=== PATIENT | male | born 1975 | race Caucasian/White ===

== ENCOUNTER 2017-07-28 08:21 | Emergency (ER) | payer MEDICAID ==
[2017-07-28] MEDS: HYDROCODONE/APAP (10/325) TAB PO (11:24)
== END 2017-07-28 12:12 | disposition home or self-care (01) ==
LOC: FTE 08:21
DX: N45.1 Epididymitis (principal); Z87.891 Personal history of nicotine dependence
CPT/HCPCS: 76870; 99284-25

== ENCOUNTER 2018-12-27 20:41 | Inpatient (IN) | payer MEDICAID ==
[2018-12-27] MEDS: SODIUM CHLORIDE 0.9% 1L BAG IV* (21:14)
[2018-12-27] MEDS: CEFEPIME 2GM/50 ML (PMX) 50 ML IVPB (21:15)
[2018-12-27] MEDS: ACETAMINOPHEN 325 MG TAB PO (21:15)
[2018-12-27 21:16] LABS: ABNORMAL IP MESSAGE 1; HEMATOCRIT 42.4 % (42.0-52.0); HEMOGLOBIN 13.8 g/dl (14.0-18.0); MEAN CORPUSCULAR HEMOGLOBIN 29.7 pg (29.0-33.0); MEAN CORPUSCULAR HGB CONC 32.5 g/dl (32.0-37.0); MEAN CORPUSCULAR VOLUME 91.2 fl (82.0-101.0); MEAN PLATELET VOLUME 9.3 fl (7.4-10.4); PLATELET COUNT 93 10^3/UL (140-415); POSITIVE DIFF @See below; RED BLOOD COUNT 4.65 10^6/ul (4.70-6.10); RED CELL DISTRIBUTION WIDTH 12.5 % (11.5-14.5)
[2018-12-27 21:16] LABS: WHITE BLOOD COUNT 1.7 10^3/ul (4.8-10.8)
[2018-12-27 21:23] LABS: ADD MAN DIFF? YES; PATH REVIEW? YES
[2018-12-27 21:36] LABS: INR 1.79; PROTIME 20.9 Sec (11.9-14.9); PT RATIO 1.6
[2018-12-27 21:37] LABS: PARTIAL THROMBOPLASTIN TIME 48.3 Sec (23.0-35.0)
[2018-12-27 21:39] LABS: ALANINE AMINOTRANSFERASE 23 IU/L (13-69); ALBUMIN 3.8 g/dl (3.3-4.9); ALBUMIN/GLOBULIN RATIO 1.46; ALKALINE PHOSPHATASE 72 IU/L (42-121); ANION GAP 11 (5-13); ASPARTATE AMINO TRANSFERASE 38 IU/L (15-46); BILIRUBIN,INDIRECT 0.9 mg/dl (0-1.1); BILIRUBIN,TOTAL 0.9 mg/dl (0.2-1.3); BLOOD UREA NITROGEN 33 mg/dl (7-20); CALCIUM 8.8 mg/dl (8.4-10.2); CARBON DIOXIDE 25 mmol/L (21-31); CHLORIDE 104 mmol/L (97-110); CREATININE 1.82 mg/dl (0.61-1.24); Estimated GFR 40 mL/min (>60); GLUCOSE 104 mg/dl (70-220); POTASSIUM 3.3 mmol/L (3.5-5.1); SODIUM 140 mmol/L (135-144); TOTAL PROTEIN 6.4 g/dl (6.1-8.1)
[2018-12-27 21:50] LABS: TROPONIN-I < 0.012 ng/ml (0.000-0.120)
[2018-12-27] MEDS: VANCOMYCIN 1 GM (PMX) 250 ML IVPB (21:51)
[2018-12-27 21:58] LABS: BAND NEUTROPHILS #M 0.1 10^3/ul (0.0-0.6); BAND NEUTROPHILS % (M) 8 % (0-4); BASOPHILS % (M) 1 % (0-2); GIANT THROMBO% (M) 4 % (0-0); LYMPHOCYTES #M 0.2 10^3/ul (0.8-2.9); LYMPHOCYTES % (M) 17 % (15-51); MONOCYTE #M 0.1 10^3/ul (0.3-0.9); MONOCYTES % (M) 8 % (0-11); PLATELET ESTIMATE DECREASED; SEG NEUT #M 1.1 10^3/ul (1.6-7.5); SEGMENTED NEUTROPHILS (M) % 65 % (39-77); SMUDGE%M 10 % (0-0)
[2018-12-27 22:49] LABS: ADD UMIC YES; UR ASCORBIC ACID NEGATIVE (NEGATIVE); UR BACTERIA FEW /HPF (NONE SEEN); UR BILIRUBIN (Dip) NEGATIVE (NEGATIVE); UR BLOOD (Dip) 1+ mg/dL (NEGATIVE); UR CLARITY CLOUDY (CLEAR); UR COLOR YELLOW (YELLOW); UR GLUCOSE (Dip) NEGATIVE (NEGATIVE); UR KETONES (Dip) NEGATIVE (NEGATIVE); UR LEUKOCYTE ESTERASE (Dip) 2+ Leu/ul (NEGATIVE); UR MUCUS FEW /HPF (NONE SEEN); UR NITRITE (Dip) NEGATIVE (NEGATIVE); UR RBC 5 /HPF (0-5); UR SPECIFIC GRAVITY (Dip) 1.013 (1.003-1.030); UR TOTAL PROTEIN (Dip) 1+ mg/dl (NEGATIVE); UR UROBILINOGEN (Dip) NEGATIVE (NEGATIVE); UR WBC 66 /HPF (0-5)
[2018-12-27 23:48] LABS: LACTIC ACID 3.5 mmol/L (0.5-2.0)
[2018-12-28] MEDS ORDERED: ONDANSETRON 4 MG INJ IV ×2 (01:00)
[2018-12-28] MEDS ORDERED: ACETAMINOPHEN 325 MG TAB PO ×2 (01:00)
[2018-12-28] MEDS ORDERED: hydrALAzine 20 MG INJ IV (01:00)
[2018-12-28] MEDS ORDERED: ALBUTEROL/IPRATROPIUM (NEB) 3 ML AMP HHN (01:00)
[2018-12-28] MEDS ORDERED: NITROGLYCERIN (SL) 0.4 MG TAB SL (01:00)
[2018-12-28] MEDS ORDERED: MAGNESIUM HYDROXIDE 30ML CUP PO (01:00)
[2018-12-28 01:22] LABS: FREE T4 (FREE THYROXINE) 1.18 ng/dl (0.64-1.79)
[2018-12-28] MEDS: LIDOCAINE 2% JEL.PF.APP 5 ML UROJET SYRINGE MM (01:50)
[2018-12-28] MEDS: LORAZEPAM 2 MG INJ IV (01:50)
[2018-12-28 02:19] LABS: LACTIC ACID 3.1 mmol/L (0.5-2.0)
[2018-12-28] MEDS ORDERED: NORepinephrine 8MG/250 ML (PMX 250 ML (03:59)
[2018-12-28] MEDS: NORepinephrine 8MG/250 ML (PMX 250 ML IV (04:38)
[2018-12-28] MEDS: PIPER-TAZO 3.375 GM IV (PMX) 100 ML IVPB ×4 (06:37→23:42)
[2018-12-28] MEDS: PANTOPRAZOLE (EC) 40 MG TAB PO (06:37)
[2018-12-28] MEDS: SOD CHLORIDE 0.9% 1,000 ML IV ×5 (08:09→19:24)
[2018-12-28] MEDS: HEPARIN 5,000 UNIT/1 ML VIAL SC (08:31)
[2018-12-28] MEDS: NORepinephrine 32 MG in DEXTROSE 5% 218 ML IV (09:21)
[2018-12-28 11:28] LABS: LACTIC ACID 3.1 mmol/L (0.5-2.0)
[2018-12-28] MEDS ORDERED: LIDOCAINE 1% (MDV) 20 ML INJ (12:22)
[2018-12-28] MEDS: HYDROCODONE/APAP (5/325) TAB PO ×2 (13:13→23:52)
[2018-12-28 14:07] LABS: LACTIC ACID 4.3 mmol/L (0.5-2.0)
[2018-12-29 05:20] LABS: WHITE BLOOD COUNT 20.9 10^3/ul (4.8-10.8)
[2018-12-29 05:20] LABS: ABNORMAL IP MESSAGE 1; HEMATOCRIT 37.2 % (42.0-52.0); HEMOGLOBIN 12.2 g/dl (14.0-18.0); MEAN CORPUSCULAR HEMOGLOBIN 29.6 pg (29.0-33.0); MEAN CORPUSCULAR HGB CONC 32.8 g/dl (32.0-37.0); MEAN CORPUSCULAR VOLUME 90.3 fl (82.0-101.0); MEAN PLATELET VOLUME 11.5 fl (7.4-10.4); PLATELET COUNT 50 10^3/UL (140-415); POSITIVE DIFF @See below; RED BLOOD COUNT 4.12 10^6/ul (4.70-6.10)
[2018-12-29 05:34] LABS: ADD MAN DIFF? YES
[2018-12-29] MEDS: SOD CHLORIDE 0.9% 1,000 ML IV ×2 (05:51→17:06)
[2018-12-29] MEDS: PANTOPRAZOLE (EC) 40 MG TAB PO (05:51)
[2018-12-29] MEDS: PIPER-TAZO 3.375 GM IV (PMX) 100 ML IVPB ×4 (05:51→23:54)
[2018-12-29] MEDS: NORepinephrine 32 MG in DEXTROSE 5% 218 ML IV (05:57)
[2018-12-29 06:03] LABS: CHOL/HDL RATIO 3.2 RATIO; HDL CHOLESTEROL 28 mg/dl (27-67); LDL CHOLESTEROL,CALCULATED 34 mg/dl; TRIGLYCERIDES 148 mg/dl (0-149)
[2018-12-29 06:03] LABS: CHOLESTEROL 92 mg/dl (100-200)
[2018-12-29 06:08] LABS: ANION GAP 5 (5-13); BLOOD UREA NITROGEN 27 mg/dl (7-20); CARBON DIOXIDE 23 mmol/L (21-31); CHLORIDE 112 mmol/L (97-110); CREATININE 1.36 mg/dl (0.61-1.24); Estimated GFR 57 mL/min (>60); GLUCOSE 126 mg/dl (70-220); MAGNESIUM 1.6 mg/dl (1.7-2.5); PHOSPHORUS 1.9 mg/dl (2.5-4.9); SODIUM 140 mmol/L (135-144)
[2018-12-29 06:21] LABS: LACTIC ACID 1.7 mmol/L (0.5-2.0)
[2018-12-29 06:26] LABS: THYROID STIMULATING HORMONE 0.605 MIU/L (0.465-4.680)
[2018-12-29 06:33] LABS: POTASSIUM 2.9 mmol/L (3.5-5.1)
[2018-12-29] MEDS: POTASSIUM CHLORIDE (SR) 20 MEQ TAB PO (06:51)
[2018-12-29] MEDS: BACLOFEN 10 MG TAB PO (08:52)
[2018-12-29 10:06] LABS: ANISOCYTOSIS 1+ (0-0); BAND NEUTROPHILS #M 9.6 10^3/ul (0.0-0.6); BAND NEUTROPHILS % (M) 46 % (0-4); BURR CELLS 2+ (0-0); LYMPHOCYTES #M 1.6 10^3/ul (0.8-2.9); LYMPHOCYTES % (M) 8 % (15-51); PLATELET ESTIMATE SIG DECREASED; POIKILOCYTOSIS 3+ (0-0); SEG NEUT #M 11.6 10^3/ul (1.6-7.5); SEGMENTED NEUTROPHILS (M) % 46 % (39-77); SMUDGE%M 8 % (0-0)
[2018-12-29] MEDS: MAGNESIUM SULFATE 3 GM in DEXTROSE 5% 100 ML IVPB (14:02)
[2018-12-29] MEDS: HYDROCODONE/APAP (5/325) TAB PO (15:57)
[2018-12-30] MEDS: HYDROCODONE/APAP (5/325) TAB PO (01:05)
[2018-12-30] MEDS: SOD CHLORIDE 0.9% 1,000 ML IV ×3 (01:10→15:49)
[2018-12-30] MEDS: CEPASTAT LOZENGE MT (04:39)
[2018-12-30] MEDS: PANTOPRAZOLE (EC) 40 MG TAB PO (06:02)
[2018-12-30] MEDS: PIPER-TAZO 3.375 GM IV (PMX) 100 ML IVPB (06:02)
[2018-12-30 06:13] LABS: ABNORMAL IP MESSAGE 1; HEMATOCRIT 33.1 % (42.0-52.0); HEMOGLOBIN 10.9 g/dl (14.0-18.0); MEAN CORPUSCULAR HEMOGLOBIN 29.7 pg (29.0-33.0); MEAN CORPUSCULAR HGB CONC 32.9 g/dl (32.0-37.0); MEAN CORPUSCULAR VOLUME 90.2 fl (82.0-101.0); MEAN PLATELET VOLUME 13.1 fl (7.4-10.4); PLATELET COUNT 39 10^3/UL (140-415); POSITIVE DIFF @See below; RED BLOOD COUNT 3.67 10^6/ul (4.70-6.10)
[2018-12-30 06:13] LABS: WHITE BLOOD COUNT 14.8 10^3/ul (4.8-10.8)
[2018-12-30 06:20] LABS: ADD MAN DIFF? YES
[2018-12-30 06:37] LABS: MAGNESIUM 2.4 mg/dl (1.7-2.5)
[2018-12-30 06:50] LABS: ANION GAP 5 (5-13); BLOOD UREA NITROGEN 15 mg/dl (7-20); CALCIUM 7.1 mg/dl (8.4-10.2); CARBON DIOXIDE 26 mmol/L (21-31); CHLORIDE 108 mmol/L (97-110); CREATININE 0.88 mg/dl (0.61-1.24); Estimated GFR > 60 mL/min (>60); GLUCOSE 99 mg/dl (70-220); POTASSIUM 3.2 mmol/L (3.5-5.1); SODIUM 139 mmol/L (135-144)
[2018-12-30] MEDS: morphine 2 MG INJ IV (09:02)
[2018-12-30] MEDS: CEFTRIAXONE 1 GM/50 ML (PMX) 50 ML IVPB (11:51)
[2018-12-30 12:16] LABS: ANISOCYTOSIS 1+ (0-0); BAND NEUTROPHILS % (M) 14 % (0-4); ERYTHROBLAST% (NRBC) (M) 3 % (0-0); GIANT THROMBO% (M) 2 % (0-0); LYMPHOCYTES #M 0.5 10^3/ul (0.8-2.9); LYMPHOCYTES % (M) 4 % (15-51); MONOCYTE #M 0.7 10^3/ul (0.3-0.9); MONOCYTES % (M) 5 % (0-11); PLATELET ESTIMATE SIG DECREASED; POIKILOCYTOSIS 1+ (0-0); POLYCHROMASIA 1+ (0-0); SEG NEUT #M 11.7 10^3/ul (1.6-7.5); SEGMENTED NEUTROPHILS (M) % 77 % (39-77); SMUDGE%M 1 % (0-0)
[2018-12-30] MEDS: POTASSIUM CHLORIDE (SR) 20 MEQ TAB PO (18:04)
[2018-12-30] MEDS: DOCUSATE SODIUM 100 MG CAP PO (21:53)
[2018-12-31] MEDS: LORAZEPAM 2 MG INJ IV (01:13)
[2018-12-31 05:34] LABS: ABNORMAL IP MESSAGE 1; HEMOGLOBIN 10.9 g/dl (14.0-18.0); MEAN CORPUSCULAR HEMOGLOBIN 29.5 pg (29.0-33.0); MEAN CORPUSCULAR VOLUME 89.4 fl (82.0-101.0); MEAN PLATELET VOLUME 12.3 fl (7.4-10.4); NUCLEATED RED BLOOD CELLS% 0.4 /100WBC (0.0-0.0); PLATELET COUNT 48 10^3/UL (140-415); POSITIVE DIFF @See below; RED BLOOD COUNT 3.69 10^6/ul (4.70-6.10)
[2018-12-31 05:34] LABS: WHITE BLOOD COUNT 9.5 10^3/ul (4.8-10.8)
[2018-12-31 05:36] LABS: ADD MAN DIFF? YES
[2018-12-31 05:50] LABS: ANION GAP 5 (5-13); BLOOD UREA NITROGEN 11 mg/dl (7-20); CARBON DIOXIDE 26 mmol/L (21-31); CHLORIDE 110 mmol/L (97-110); CREATININE 0.81 mg/dl (0.61-1.24); Estimated GFR > 60 mL/min (>60); GLUCOSE 95 mg/dl (70-220); POTASSIUM 3.8 mmol/L (3.5-5.1); SODIUM 141 mmol/L (135-144)
[2018-12-31] MEDS: PANTOPRAZOLE (EC) 40 MG TAB PO (06:14)
[2018-12-31 06:45] LABS: BAND NEUTROPHILS #M 1.5 10^3/ul (0.0-0.6); BAND NEUTROPHILS % (M) 16 % (0-4); LYMPHOCYTES #M 1.6 10^3/ul (0.8-2.9); LYMPHOCYTES % (M) 17 % (15-51); MONOCYTES % (M) 1 % (0-11); PLATELET ESTIMATE SIG DECREASED; POLYCHROMASIA 2+ (0-0); SEG NEUT #M 6.4 10^3/ul (1.6-7.5); SEGMENTED NEUTROPHILS (M) % 66 % (39-77); SMUDGE%M 7 % (0-0)
[2018-12-31] MEDS ORDERED: CEPASTAT LOZENGE MT (09:30)
[2018-12-31] MEDS: CEFTRIAXONE 1 GM/50 ML (PMX) 50 ML IVPB (10:27)
[2018-12-31] MEDS: HYDROCODONE/APAP (5/325) TAB PO (13:11)
[2019-01-01] MEDS: PANTOPRAZOLE (EC) 40 MG TAB PO (06:06)
[2019-01-01 06:36] LABS: ABNORMAL IP MESSAGE 1; HEMATOCRIT 37.1 % (42.0-52.0); MEAN CORPUSCULAR HEMOGLOBIN 28.5 pg (29.0-33.0); MEAN CORPUSCULAR HGB CONC 32.3 g/dl (32.0-37.0); MEAN CORPUSCULAR VOLUME 88.1 fl (82.0-101.0); MEAN PLATELET VOLUME 12.4 fl (7.4-10.4); NUCLEATED RED BLOOD CELLS% 0.2 /100WBC (0.0-0.0); PLATELET COUNT 70 10^3/UL (140-415); POSITIVE DIFF @See below; RED BLOOD COUNT 4.21 10^6/ul (4.70-6.10); RED CELL DISTRIBUTION WIDTH 13.2 % (11.5-14.5)
[2019-01-01 06:36] LABS: WHITE BLOOD COUNT 9.7 10^3/ul (4.8-10.8)
[2019-01-01 06:46] LABS: ADD MAN DIFF? YES
[2019-01-01 07:08] LABS: ANION GAP 6 (5-13); BLOOD UREA NITROGEN 12 mg/dl (7-20); CALCIUM 8.7 mg/dl (8.4-10.2); CARBON DIOXIDE 25 mmol/L (21-31); CHLORIDE 109 mmol/L (97-110); CREATININE 0.87 mg/dl (0.61-1.24); Estimated GFR > 60 mL/min (>60); GLUCOSE 123 mg/dl (70-220); POTASSIUM 3.5 mmol/L (3.5-5.1); SODIUM 140 mmol/L (135-144)
[2019-01-01 09:28] LABS: ANISOCYTOSIS 1+ (0-0); BAND NEUTROPHILS #M 1.3 10^3/ul (0.0-0.6); BAND NEUTROPHILS % (M) 14 % (0-4); EOSINOPHILS % (M) 4 % (0-7); GIANT THROMBO% (M) 1 % (0-0); LYMPHOCYTES #M 2.5 10^3/ul (0.8-2.9); LYMPHOCYTES % (M) 26 % (15-51); METAMYELOCYTES %M 1 % (0-0); MICROCYTOSIS 1+ (0-0); MONOCYTE #M 0.5 10^3/ul (0.3-0.9); MONOCYTES % (M) 6 % (0-11); MYELOCYTES % (M) 1 % (0-0); OVALOCYTES 1+ (0-0); PLATELET ESTIMATE DECREASED; POLYCHROMASIA 3+ (0-0); REACTIVE LYMPHOCYTES% (M) 1 % (0-0); SEG NEUT #M 4.7 10^3/ul (1.6-7.5); SEGMENTED NEUTROPHILS (M) % 47 % (39-77); SMUDGE%M 6 % (0-0)
[2019-01-01] MEDS: CEFTRIAXONE 1 GM/50 ML (PMX) 50 ML IVPB (10:25)
[2019-01-01] MEDS: NACL 0.9% 3 ML SYG IV (10:25)
[2019-01-01] MEDS: HYDROCODONE/APAP (5/325) TAB PO (20:33)
[2019-01-01] MEDS: LORAZEPAM 2 MG INJ IV (21:52)
[2019-01-02 06:10] LABS: WHITE BLOOD COUNT 10.9 10^3/ul (4.8-10.8)
[2019-01-02 06:10] LABS: ABNORMAL IP MESSAGE 1; HEMATOCRIT 37.7 % (42.0-52.0); HEMOGLOBIN 12.5 g/dl (14.0-18.0); MEAN CORPUSCULAR HEMOGLOBIN 29.1 pg (29.0-33.0); MEAN CORPUSCULAR HGB CONC 33.2 g/dl (32.0-37.0); MEAN CORPUSCULAR VOLUME 87.9 fl (82.0-101.0); MEAN PLATELET VOLUME 11.4 fl (7.4-10.4); NUCLEATED RED BLOOD CELLS% 0.3 /100WBC (0.0-0.0); PLATELET COUNT 121 10^3/UL (140-415); POSITIVE DIFF @See below; RED BLOOD COUNT 4.29 10^6/ul (4.70-6.10); RED CELL DISTRIBUTION WIDTH 12.9 % (11.5-14.5)
[2019-01-02 06:15] LABS: MAGNESIUM 1.9 mg/dl (1.7-2.5)
[2019-01-02 06:15] LABS: PHOSPHORUS 3.8 mg/dl (2.5-4.9)
[2019-01-02 06:18] LABS: ANION GAP 5 (5-13); BLOOD UREA NITROGEN 14 mg/dl (7-20); CALCIUM 8.3 mg/dl (8.4-10.2); CARBON DIOXIDE 27 mmol/L (21-31); CHLORIDE 108 mmol/L (97-110); CREATININE 0.82 mg/dl (0.61-1.24); Estimated GFR > 60 mL/min (>60); GLUCOSE 91 mg/dl (70-220); POTASSIUM 3.8 mmol/L (3.5-5.1); SODIUM 140 mmol/L (135-144)
[2019-01-02 06:21] LABS: ADD MAN DIFF? YES
[2019-01-02] MEDS: PANTOPRAZOLE (EC) 40 MG TAB PO (06:35)
[2019-01-02] MEDS: CEFTRIAXONE 1 GM/50 ML (PMX) 50 ML IVPB (08:21)
[2019-01-02 09:02] LABS: BAND NEUTROPHILS #M 0.7 10^3/ul (0.0-0.6); BAND NEUTROPHILS % (M) 7 % (0-4); BASOPHIL #M 0.1 10^3/ul (0.0-0.0); BASOPHILS % (M) 1 % (0-2); EOSINOPHILS % (M) 3 % (0-7); GIANT THROMBO% (M) 6 % (0-0); LYMPHOCYTES % (M) 37 % (15-51); METAMYELOCYTES #M 0.3 10^3/ul (0.0-0.0); METAMYELOCYTES %M 3 % (0-0); MONOCYTE #M 0.7 10^3/ul (0.3-0.9); MONOCYTES % (M) 7 % (0-11); MYELOCYTES #M 0.1 10^3/ul (0.0-0.0); MYELOCYTES % (M) 1 % (0-0); PLATELET ESTIMATE DECREASED; POIKILOCYTOSIS 1+ (0-0); POLYCHROMASIA 1+ (0-0); REACTIVE LYMPHOCYTES #M 0.1 10^3/ul (0.0-0.0); REACTIVE LYMPHOCYTES% (M) 1 % (0-0); SEG NEUT #M 4.4 10^3/ul (1.6-7.5); SEGMENTED NEUTROPHILS (M) % 40 % (39-77); SMUDGE%M 7 % (0-0); SPHEROCYTES 1+ (0-0)
[2019-01-02] MEDS: SACCHAROMYCES BOULARDII 250 MG CAP PO (20:44)
[2019-01-03] MEDS: LORAZEPAM 2 MG INJ IV (02:43)
[2019-01-03] MEDS: PANTOPRAZOLE (EC) 40 MG TAB PO (05:55)
[2019-01-03 06:03] LABS: WHITE BLOOD COUNT 14.3 10^3/ul (4.8-10.8)
[2019-01-03 06:03] LABS: ABNORMAL IP MESSAGE 1; HEMATOCRIT 40.9 % (42.0-52.0); HEMOGLOBIN 13.5 g/dl (14.0-18.0); MEAN CORPUSCULAR HEMOGLOBIN 29.1 pg (29.0-33.0); MEAN CORPUSCULAR VOLUME 88.1 fl (82.0-101.0); MEAN PLATELET VOLUME 10.9 fl (7.4-10.4); PLATELET COUNT 199 10^3/UL (140-415); POSITIVE DIFF @See below; RED BLOOD COUNT 4.64 10^6/ul (4.70-6.10); RED CELL DISTRIBUTION WIDTH 13.1 % (11.5-14.5)
[2019-01-03 06:13] LABS: ADD MAN DIFF? YES
[2019-01-03 06:41] LABS: MAGNESIUM 2.1 mg/dl (1.7-2.5)
[2019-01-03 06:41] LABS: PHOSPHORUS 3.7 mg/dl (2.5-4.9)
[2019-01-03 06:49] LABS: ANION GAP 8 (5-13); BLOOD UREA NITROGEN 17 mg/dl (7-20); CALCIUM 8.8 mg/dl (8.4-10.2); CARBON DIOXIDE 25 mmol/L (21-31); CHLORIDE 106 mmol/L (97-110); Estimated GFR > 60 mL/min (>60); GLUCOSE 105 mg/dl (70-220); POTASSIUM 4.4 mmol/L (3.5-5.1); SODIUM 139 mmol/L (135-144)
[2019-01-03 07:15] LABS: BAND NEUTROPHILS #M 0.7 10^3/ul (0.0-0.6); BAND NEUTROPHILS % (M) 5 % (0-4); EOSINOPHILS % (M) 11 % (0-7); GIANT THROMBO% (M) 5 % (0-0); LYMPHOCYTES #M 2.5 10^3/ul (0.8-2.9); LYMPHOCYTES % (M) 18 % (15-51); METAMYELOCYTES #M 0.2 10^3/ul (0.0-0.0); METAMYELOCYTES %M 2 % (0-0); MONOCYTE #M 1.5 10^3/ul (0.3-0.9); MONOCYTES % (M) 11 % (0-11); MYELOCYTES #M 0.8 10^3/ul (0.0-0.0); MYELOCYTES % (M) 6 % (0-0); PLATELET ESTIMATE NORMAL; POLYCHROMASIA 1+ (0-0); PROMYELOCYTES #M 0.2 10^3/ul (0-0); PROMYELOCYTES % (M) 2 % (0-0); REACTIVE LYMPHOCYTES #M 0.2 10^3/ul (0.0-0.0); REACTIVE LYMPHOCYTES% (M) 2 % (0-0); SEG NEUT #M 6.2 10^3/ul (1.6-7.5); SEGMENTED NEUTROPHILS (M) % 43 % (39-77); SMUDGE%M 17 % (0-0)
[2019-01-03] MEDS: SACCHAROMYCES BOULARDII 250 MG CAP PO ×2 (08:43→21:01)
[2019-01-03] MEDS: CEFTRIAXONE 1 GM/50 ML (PMX) 50 ML IVPB (08:43)
[2019-01-03] MEDS: HEPARIN 5,000 UNIT/1 ML VIAL SC ×2 (09:43→21:01)
[2019-01-03] MEDS: VITAMIN A & D 5 GM OINT PACKET TOP ×2 (18:12→23:07)
[2019-01-03] MEDS: ZOLPIDEM 5 MG TAB PO (23:22)
[2019-01-04] MEDS: PANTOPRAZOLE (EC) 40 MG TAB PO (05:53)
[2019-01-04 06:01] LABS: WHITE BLOOD COUNT 13.9 10^3/ul (4.8-10.8)
[2019-01-04 06:01] LABS: ABNORMAL IP MESSAGE 1; HEMATOCRIT 42.4 % (42.0-52.0); HEMOGLOBIN 13.9 g/dl (14.0-18.0); MEAN CORPUSCULAR HEMOGLOBIN 29.1 pg (29.0-33.0); MEAN CORPUSCULAR HGB CONC 32.8 g/dl (32.0-37.0); MEAN CORPUSCULAR VOLUME 88.7 fl (82.0-101.0); MEAN PLATELET VOLUME 10.7 fl (7.4-10.4); PLATELET COUNT 286 10^3/UL (140-415); POSITIVE DIFF @See below; RED BLOOD COUNT 4.78 10^6/ul (4.70-6.10)
[2019-01-04 06:15] LABS: ADD MAN DIFF? YES
[2019-01-04 06:39] LABS: PHOSPHORUS 3.4 mg/dl (2.5-4.9)
[2019-01-04 06:39] LABS: MAGNESIUM 2.2 mg/dl (1.7-2.5)
[2019-01-04 06:48] LABS: ANION GAP 8 (5-13); BLOOD UREA NITROGEN 19 mg/dl (7-20); CALCIUM 8.9 mg/dl (8.4-10.2); CARBON DIOXIDE 24 mmol/L (21-31); CHLORIDE 106 mmol/L (97-110); CREATININE 0.92 mg/dl (0.61-1.24); Estimated GFR > 60 mL/min (>60); GLUCOSE 105 mg/dl (70-220); SODIUM 138 mmol/L (135-144)
[2019-01-04 07:10] LABS: POTASSIUM 4.5 mmol/L (3.5-5.1)
[2019-01-04] MEDS: CEFTRIAXONE 1 GM/50 ML (PMX) 50 ML IVPB (09:00)
[2019-01-04] MEDS: VITAMIN A & D 5 GM OINT PACKET TOP ×2 (09:00→21:04)
[2019-01-04] MEDS: SACCHAROMYCES BOULARDII 250 MG CAP PO ×2 (09:00→21:04)
[2019-01-04] MEDS: HEPARIN 5,000 UNIT/1 ML VIAL SC ×2 (09:06→21:00)
[2019-01-04 09:28] LABS: BAND NEUTROPHILS #M 1.3 10^3/ul (0.0-0.6); BAND NEUTROPHILS % (M) 10 % (0-4); EOSINOPHILS % (M) 6 % (0-7); GIANT THROMBO% (M) 2 % (0-0); LYMPHOCYTES #M 1.2 10^3/ul (0.8-2.9); LYMPHOCYTES % (M) 9 % (15-51); METAMYELOCYTES #M 0.6 10^3/ul (0.0-0.0); METAMYELOCYTES %M 5 % (0-0); MONOCYTE #M 0.8 10^3/ul (0.3-0.9); MONOCYTES % (M) 6 % (0-11); MYELOCYTES % (M) 15 % (0-0); PLATELET ESTIMATE NORMAL; POLYCHROMASIA 1+ (0-0); PROMYELOCYTES #M 0.5 10^3/ul (0-0); PROMYELOCYTES % (M) 4 % (0-0); REACTIVE LYMPHOCYTES #M 0.2 10^3/ul (0.0-0.0); REACTIVE LYMPHOCYTES% (M) 2 % (0-0); SEG NEUT #M 6.2 10^3/ul (1.6-7.5); SEGMENTED NEUTROPHILS (M) % 43 % (39-77); SMUDGE%M 44 % (0-0)
[2019-01-04] MEDS: ZOLPIDEM 5 MG TAB PO (23:50)
[2019-01-05] MEDS: LORAZEPAM 2 MG INJ IV (00:31)
[2019-01-05] MEDS: PANTOPRAZOLE (EC) 40 MG TAB PO (06:04)
[2019-01-05] MEDS: HEPARIN 5,000 UNIT/1 ML VIAL SC (09:00)
[2019-01-05] MEDS: CEFTRIAXONE 1 GM/50 ML (PMX) 50 ML IVPB (09:12)
[2019-01-05] MEDS: VITAMIN A & D 5 GM OINT PACKET TOP (09:12)
[2019-01-05] MEDS: SACCHAROMYCES BOULARDII 250 MG CAP PO (09:12)
== END 2019-01-05 15:00 | disposition home or self-care (01) | DRG 871 ==
LOC: 2NE 12-31 18:35 → ICU 12-28 04:11 → E/R 20:41
PROVIDERS: Hospitalist
PROC: 0T9B30Z Drainage of Bladder with Drainage Device, Percutaneous Approach (ICD-10-PCS; principal; 2018-12-28)
DX: A41.9 Sepsis, unspecified organism (principal); R65.21 Severe sepsis with septic shock; N39.0 Urinary tract infection, site not specified; B96.89 Other specified bacterial agents as the cause of diseases classified elsewhere; N35.919 Unspecified urethral stricture, male, unspecified site; N40.0 Benign prostatic hyperplasia without lower urinary tract symptoms; D69.6 Thrombocytopenia, unspecified; D64.9 Anemia, unspecified
CPT/HCPCS: 36415; 71045; 74018; 76856; 76942; 80048; 80053; 80061; 81001; 83036; 83605; 83735; 84100; 84439; 84443; 84484; 85025; 85610; 85730; 87040-91; 87081; 87086; 87400; 92610; 93005; 96374; 96375; 99285-25

== ENCOUNTER 2019-02-04 21:18 | Emergency (ER) | payer MEDICAID ==
[2019-02-04 22:24] LABS: URINE BLOOD (Dip) POC 2+ (NEGATIVE); URINE GLUCOSE (Dip) POC Negative (NEGATIVE); URINE KETONES (Dip) POC Negative (NEGATIVE); URINE LEUKOCYTE EST (Dip) POC Trace (NEGATIVE); URINE NITRITE (Dip) POC Negative (NEGATIVE); URINE TOTAL PROTEIN POC 1+ (NEGATIVE)
[2019-02-04] MEDS: SOD CHLORIDE 0.9% 1,000 ML IV (22:32)
[2019-02-04 22:38] LABS: ADD MAN DIFF? NO
[2019-02-04 22:40] LABS: BASOPHIL # 0.1 10^3/ul (0.0-0.1); BASOPHILS % 0.8 % (0.0-2.0); EOSINOPHILS # 0.3 10^3/ul (0.0-0.5); EOSINOPHILS % 3.9 % (0.0-7.0); HEMATOCRIT 44.3 % (42.0-52.0); HEMOGLOBIN 14.2 g/dl (14.0-18.0); LYMPHOCYTES % 27.5 % (15.0-51.0); MEAN CORPUSCULAR HEMOGLOBIN 28.8 pg (29.0-33.0); MEAN CORPUSCULAR HGB CONC 32.1 g/dl (32.0-37.0); MEAN CORPUSCULAR VOLUME 89.9 fl (82.0-101.0); MEAN PLATELET VOLUME 9.7 fl (7.4-10.4); MONOCYTE # 0.5 10^3/ul (0.3-0.9); MONOCYTES % 7.4 % (0.0-11.0); NEUTROPHIL # 4.2 10^3/ul (1.6-7.5); NEUTROPHILS % 59.3 % (39.0-77.0); PLATELET COUNT 205 10^3/UL (140-415); RED BLOOD COUNT 4.93 10^6/ul (4.70-6.10); RED CELL DISTRIBUTION WIDTH 12.5 % (11.5-14.5)
[2019-02-04 22:40] LABS: WHITE BLOOD COUNT 7.2 10^3/ul (4.8-10.8)
[2019-02-04 22:43] LABS: ADD UMIC YES; UR AMORPHOUS CRYSTAL FEW /HPF (NONE SEEN); UR ASCORBIC ACID NEGATIVE (NEGATIVE); UR BACTERIA FEW /HPF (NONE SEEN); UR BILIRUBIN (Dip) NEGATIVE (NEGATIVE); UR BLOOD (Dip) 3+ mg/dL (NEGATIVE); UR CALCIUM OXALATE CRYSTAL MANY /HPF (NONE SEEN); UR CLARITY CLOUDY (CLEAR); UR COLOR YELLOW (YELLOW); UR GLUCOSE (Dip) NEGATIVE (NEGATIVE); UR KETONES (Dip) NEGATIVE (NEGATIVE); UR LEUKOCYTE ESTERASE (Dip) TRACE Leu/ul (NEGATIVE); UR NITRITE (Dip) NEGATIVE (NEGATIVE); UR RBC 10 /HPF (0-5); UR SPECIFIC GRAVITY (Dip) 1.009 (1.003-1.030); UR TOTAL PROTEIN (Dip) NEGATIVE (NEGATIVE); UR UROBILINOGEN (Dip) NEGATIVE (NEGATIVE); UR WBC 7 /HPF (0-5)
[2019-02-04 22:58] LABS: ANION GAP 9 (5-13); BLOOD UREA NITROGEN 18 mg/dl (7-20); CALCIUM 9.9 mg/dl (8.4-10.2); CARBON DIOXIDE 31 mmol/L (21-31); CHLORIDE 101 mmol/L (97-110); CREATININE 1.07 mg/dl (0.61-1.24); Estimated GFR > 60 mL/min (>60); GLUCOSE 112 mg/dl (70-220); POTASSIUM 4.8 mmol/L (3.5-5.1); SODIUM 141 mmol/L (135-144)
== END 2019-02-04 23:31 | disposition home or self-care (01) ==
LOC: E/R 21:18
DX: N39.0 Urinary tract infection, site not specified (principal); F17.210 Nicotine dependence, cigarettes, uncomplicated; E66.9 Obesity, unspecified; Z68.30 Body mass index [BMI] 30.0-30.9, adult
CPT/HCPCS: 36415; 80048; 81001; 81003; 85025; 87086; 99284-25

== ENCOUNTER 2019-03-11 21:07 | Inpatient (IN) | payer OTHER, MEDICAID ==
[2019-03-11] MEDS: SOD CHLORIDE 0.9% 1,000 ML IV (23:50)
[2019-03-12 00:23] LABS: ADD UMIC YES; UR ASCORBIC ACID 40 mg/dL (NEGATIVE); UR BACTERIA MODERATE /HPF (NONE SEEN); UR BILIRUBIN (Dip) NEGATIVE (NEGATIVE); UR BLOOD (Dip) 3+ mg/dL (NEGATIVE); UR CLARITY CLOUDY (CLEAR); UR COLOR AMBER (YELLOW); UR GLUCOSE (Dip) NEGATIVE (NEGATIVE); UR KETONES (Dip) NEGATIVE (NEGATIVE); UR LEUKOCYTE ESTERASE (Dip) 3+ Leu/ul (NEGATIVE); UR MUCUS MANY /HPF (NONE SEEN); UR NITRITE (Dip) POSITIVE (NEGATIVE); UR RBC > 182 /HPF (0-5); UR SPECIFIC GRAVITY (Dip) 1.035 (1.003-1.030); UR SQUAMOUS EPITHELIAL CELL FEW /HPF (FEW); UR TOTAL PROTEIN (Dip) 3+ mg/dl (NEGATIVE); UR UROBILINOGEN (Dip) NEGATIVE (NEGATIVE); UR WBC > 182 /HPF (0-5)
[2019-03-12 01:01] LABS: ADD MAN DIFF? NO
[2019-03-12 01:04] LABS: BASOPHIL # 0.1 10^3/ul (0.0-0.1); BASOPHILS % 1.1 % (0.0-2.0); EOSINOPHILS # 0.3 10^3/ul (0.0-0.5); EOSINOPHILS % 4.3 % (0.0-7.0); HEMATOCRIT 42.6 % (42.0-52.0); HEMOGLOBIN 14.1 g/dl (14.0-18.0); LYMPHOCYTES # 2.3 10^3/ul (0.8-2.9); LYMPHOCYTES % 36.5 % (15.0-51.0); MEAN CORPUSCULAR HEMOGLOBIN 29.7 pg (29.0-33.0); MEAN CORPUSCULAR HGB CONC 33.1 g/dl (32.0-37.0); MEAN CORPUSCULAR VOLUME 89.7 fl (82.0-101.0); MEAN PLATELET VOLUME 9.1 fl (7.4-10.4); MONOCYTE # 0.5 10^3/ul (0.3-0.9); MONOCYTES % 8.5 % (0.0-11.0); NEUTROPHIL # 3.1 10^3/ul (1.6-7.5); NEUTROPHILS % 48.5 % (39.0-77.0); PLATELET COUNT 239 10^3/UL (140-415); RED BLOOD COUNT 4.75 10^6/ul (4.70-6.10); RED CELL DISTRIBUTION WIDTH 12.6 % (11.5-14.5)
[2019-03-12 01:04] LABS: WHITE BLOOD COUNT 6.4 10^3/ul (4.8-10.8)
[2019-03-12 01:26] LABS: ALANINE AMINOTRANSFERASE 53 IU/L (13-69); ALBUMIN 3.9 g/dl (3.3-4.9); ALBUMIN/GLOBULIN RATIO 1.21; ALKALINE PHOSPHATASE 61 IU/L (42-121); ANION GAP 8 (5-13); ASPARTATE AMINO TRANSFERASE 152 IU/L (15-46); BILIRUBIN,INDIRECT 0.5 mg/dl (0-1.1); BILIRUBIN,TOTAL 0.5 mg/dl (0.2-1.3); BLOOD UREA NITROGEN 22 mg/dl (7-20); CALCIUM 9.1 mg/dl (8.4-10.2); CARBON DIOXIDE 28 mmol/L (21-31); CHLORIDE 102 mmol/L (97-110); CREATININE 0.95 mg/dl (0.61-1.24); Estimated GFR > 60 mL/min (>60); GLUCOSE 132 mg/dl (70-220); LIPASE 113 U/L (23-300); POTASSIUM 3.5 mmol/L (3.5-5.1); SODIUM 138 mmol/L (135-144); TOTAL PROTEIN 7.1 g/dl (6.1-8.1)
[2019-03-12] MEDS ORDERED: ACETAMINOPHEN 325 MG TAB PO (02:00)
[2019-03-12] MEDS ORDERED: ONDANSETRON 4 MG INJ IV (02:00)
[2019-03-12] MEDS: CEFTRIAXONE 1 GM/50 ML (PMX) 50 ML IVPB ×2 (02:09→08:52)
[2019-03-12] MEDS: morphine 4 MG/ML VIAL IV (02:12)
[2019-03-12] MEDS: HYDROCODONE/APAP (5/325) TAB PO (16:55)
[2019-03-13 05:07] LABS: ADD MAN DIFF? NO
[2019-03-13 05:13] LABS: BASOPHIL # 0.1 10^3/ul (0.0-0.1); BASOPHILS % 1.4 % (0.0-2.0); EOSINOPHILS # 0.2 10^3/ul (0.0-0.5); EOSINOPHILS % 4.6 % (0.0-7.0); HEMATOCRIT 42.2 % (42.0-52.0); HEMOGLOBIN 13.7 g/dl (14.0-18.0); LYMPHOCYTES # 2.2 10^3/ul (0.8-2.9); LYMPHOCYTES % 42.9 % (15.0-51.0); MEAN CORPUSCULAR HEMOGLOBIN 29.1 pg (29.0-33.0); MEAN CORPUSCULAR HGB CONC 32.5 g/dl (32.0-37.0); MEAN CORPUSCULAR VOLUME 89.6 fl (82.0-101.0); MEAN PLATELET VOLUME 9.4 fl (7.4-10.4); MONOCYTE # 0.4 10^3/ul (0.3-0.9); MONOCYTES % 8.3 % (0.0-11.0); NEUTROPHIL # 2.1 10^3/ul (1.6-7.5); NEUTROPHILS % 41.2 % (39.0-77.0); PLATELET COUNT 238 10^3/UL (140-415); RED BLOOD COUNT 4.71 10^6/ul (4.70-6.10); RED CELL DISTRIBUTION WIDTH 12.8 % (11.5-14.5)
[2019-03-13 05:29] LABS: ANION GAP 5 (5-13); BLOOD UREA NITROGEN 11 mg/dl (7-20); CALCIUM 8.8 mg/dl (8.4-10.2); CARBON DIOXIDE 29 mmol/L (21-31); CHLORIDE 105 mmol/L (97-110); CREATININE 0.88 mg/dl (0.61-1.24); Estimated GFR > 60 mL/min (>60); GLUCOSE 92 mg/dl (70-220); POTASSIUM 4.1 mmol/L (3.5-5.1); SODIUM 139 mmol/L (135-144)
[2019-03-13] MEDS: ACETAMINOPHEN 325 MG TAB PO ×2 (06:41→19:15)
[2019-03-13] MEDS: CEFTRIAXONE 1 GM/50 ML (PMX) 50 ML IVPB (08:52)
[2019-03-13] MEDS: CEFEPIME 1GM/50 ML (PMX) 50 ML IVPB (20:37)
[2019-03-14] MEDS: CEFEPIME 1GM/50 ML (PMX) 50 ML IVPB (08:15)
[2019-03-14] MEDS: HYDROCODONE/APAP (5/325) TAB PO (11:40)
[2019-03-14] MEDS: CIPROFLOXACIN 500 MG TAB PO (17:31)
[2019-03-15] MEDS: CIPROFLOXACIN 500 MG TAB PO (05:15)
== END 2019-03-15 14:50 | disposition home or self-care (01) | DRG 690 ==
LOC: E/R 21:07 → MS1 03-12 01:32
PROC: 0T2BX0Z Change Drainage Device in Bladder, External Approach (ICD-10-PCS; principal; 2019-03-15)
DX: N13.6 Pyonephrosis (principal); B96.1 Klebsiella pneumoniae [K. pneumoniae] as the cause of diseases classified elsewhere; B95.7 Other staphylococcus as the cause of diseases classified elsewhere
CPT/HCPCS: 36415; 80048; 80053; 81001; 83690; 85025; 87086; 99285-25